=== PATIENT | female | born 1960 | race Caucasian/White ===

== ENCOUNTER 2017-12-08 13:51 | Emergency (ER) | payer SELFPAY ==
[~2017-12-08] VITALS: Ht 167.6 cm; Wt 156.5 kg
[2017-12-08 13:59] VITALS: BP 167/81; PULSE 67; RESP 18; TEMP 97.8; O2SAT 99
[2017-12-08] MEDS ORDERED: SIME1CHW11 (14:38)
[2017-12-08] MEDS ORDERED: SODIUM CHLORIDE 0.9% FLUSH 10 ML FLUSH IV FLUSH PRN (14:45)
--- NOTE | 2017-12-08 14:57 | PD ---
HPI . Night pain Chief Complaint: Abdominal Pain Time Seen by Provider: 14:17 Travel History International Travel<30 days: No Contact w/Intl Traveler<30days: No Traveled to known affect area: No History of Present Illness HPI Patient presents with a chief complaint of left flank pain. Onset was 6 days ago. Pain has been getting progressively worse. Pain is rated 2/10. She has subsequently developed pain in her left leg. She is pointing to her knee. That pain started just a couple of days ago. It is worse with ambulation. It is better with rest. She has noticed that burping makes her flank pain better. She reports a new diet. She is concerned that her symptoms are related to the diet. However, she states that she has cut out milk products and wheat products but her symptoms continue. She later states that she was here for somebody to tell her that her symptoms were related to her diet. She now declines all testing. PFS Past Medical History Medical History: Denies Significant Hx Tetanus Vaccination: Unknown Influenza Vaccination: No ?: Not LMP: 2 YRS Past Surgical History Tonsillectomy: Yes Social History Alcohol Use: No Tobacco Use: No Substance Use: No Allergies-Medications (Allergen,Severity, Reaction): Coded Allergies: No Known Allergies (Verified Allergy, Unknown, 12/08/17) Reported Meds & Prescriptions Reported Meds & Active Scripts Active Reported Gas Relief Maximum Streng (Simethicone) 125 Mg Chw Review of Systems Except as stated in HPI: all other systems reviewed are Neg General / Constitutional: No: Fever, Chills Cardiovascular: No: Chest Pain or Discomfort Respiratory: No: Shortness of Breath Gastrointestinal: Positive: Abdominal Pain, No: Nausea, Vomiting, Diarrhea, Loss of Appetite Genitourinary: No: Urgency, Frequency, Dysuria, Incontinence Musculoskeletal: Positive: Myalgias, Arthralgias Physical Exam Narrative GENERAL: Patient is markedly obese. She is in no acute distress. SKIN: warm/dry. HEAD: Normocephalic. Atraumatic. EYES: Pupils equal and round. Extraocular movements are intact. ENT: Mucous membranes pink and moist. NECK: Supple. Full range of motion without pain.. CARDIOVASCULAR: Regular rate and rhythm. RESPIRATORY: No accessory muscle use. Clear to auscultation. Breath sounds equal bilaterally. GASTROINTESTINAL: Abdomen soft. Nontender. Bowel sounds present. Nondistended. RECTAL: : No CVA tenderness. MUSCULOSKELETAL: No obvious deformities. Normal muscle tone. No back tenderness. No obvious left knee or hip abnormality. This would be difficult to discern with her size. NEUROLOGICAL: Awake and alert. No obvious cranial nerve deficits. Motor grossly within normal limits. Normal speech. PSYCHIATRIC: Appropriate mood and affect; insight and judgment normal. Data Data Last Documented VS Vital Signs Date Time Temp Pulse Resp B/P (MAP) Pulse Ox O2 Delivery O2 Flow Rate FiO2 12/08/17 13:59 97.8 67 18 167/81 (109) 99 Orders Orders Complete Blood Count With Diff (12/08/17 14:35) Comprehensive Metabolic Panel (12/08/17 14:35) Lipase (12/08/17 14:35) Urinalysis - C+S If Indicated (12/08/17 14:35) Ct Abd/Pel W Iv Contrast(Rout) (12/08/17 14:35) Sodium Chloride 0.9% Flush (Ns Flush) (12/08/17 14:45) Hip, Uni(Ap&Lat) W Ap Pelvis (12/08/17 14:35) Knee, Complete (4vws) (12/08/17 14:35) MDM Medical Decision Making Medical Screen Exam Complete: Yes Emergency Medical Condition: Yes Differential Diagnosis Differential diagnosis of flank pain includes but is not limited to kidney stone , pyelonephritis, musculoskeletal pain, PE, AAA Narrative Course This patient presents with left flank pain which is improved with burping. She has subsequently developed left leg pain which is exacerbated by walking and improved with rest. I will ordered a battery of test including a CT of the abdomen and pelvis to look for possible kidney stone or pyelonephritis. Also ordered plain films of her left hip and left knee. I was expecting to see arthritis. However, the patient has told the nurse that she does not want to have any tests done. She states she does not have any insurance. She states that she will go see her doctor next week for further evaluation. She has a benign examination. I will just discharge her from the emergency department. Diagnosis Primary Impression: Leg pain, left Additional Impression: Flank pain Patient Instructions: General Instructions Departure Forms: Tests/Procedures Disposition: 01 DISCHARGE HOME Condition: Stable Suzy Olson MD Dec 08, 2017 14:57
== END 2017-12-08 15:00 | disposition home or self-care (01) ==
LOC: PHED 13:51
DX: M79.605 Pain in left leg (principal); R10.9 Unspecified abdominal pain; M79.1 Myalgia; M25.50 Pain in unspecified joint
CPT/HCPCS: 99282